=== PATIENT | female | born 1975 | race Caucasian/White ===

== ENCOUNTER 2021-02-22 09:51 | Inpatient (IN) ==
[~2021-02-22 09:51] MED LIST: Buffered Lidocaine 1% SYRIN 1 ml INTRADERM ONE; Lactated Ringers 1000 ml BAG 1,000 ML IV SCH
[2021-02-22] MEDS ORDERED: Heparin 5000 UNITS/ML 1 mL VIAL ONE (10:20)
[2021-02-22] MEDS ORDERED: ceFAZolin 2 GM in NS PREMIX 2 GM/100 ML BAG IVPB ONE (10:20)
[2021-02-22] MEDS ORDERED: ceFAZolin 1 GM ADVAN 1 GM ADDV.VIAL IVPB ONE (10:20)
[2021-02-22] MEDS ORDERED: Bupivacaine 0.25% EPI 200,000 30 ML SDV ONE (11:10)
[2021-02-22] MEDS ORDERED: Methylene Blue 0.5 % 50 MG/10 ML AMP IV ONE (11:10)
[2021-02-22] MEDS ORDERED: fentaNYL 100 mcg/2 ml 50 MCG/ML VIAL ONE (11:31)
[2021-02-22] MEDS ORDERED: Ketamine HCL 50 mg/ml 10 ml VIAL (500 MG) ONE (11:31)
[2021-02-22] MEDS ORDERED: Midazolam 2 mg/2 ml VIAL 1 mg/ml 2 ml VIAL (2 mg) ONE (11:31)
[2021-02-22] MEDS ORDERED: Rocuronium 50 mg VIAL 10 mg/ml 5 ml VIAL (50 mg) ONE ×3 (11:31→12:09)
[2021-02-22] MEDS ORDERED: Ondansetron 4 mg VIAL 2 MG/ML 2 ml VIAL IV PRN ×2 (12:53→14:40)
[2021-02-22] MEDS ORDERED: Naloxone 0.4 mg VIAL 0.4 mg/ml 1 ml VIAL IV PRN (12:53)
[2021-02-22] MEDS ORDERED: HYDROmorphone 1 MG/1 ML SYRINGE IV PRN (12:53)
[2021-02-22] MEDS ORDERED: Dexamethasone IV 4 MG/ML VIAL 1 ml VIAL ONE (13:35)
[2021-02-22] MEDS ORDERED: Ondansetron 4 mg VIAL 2 MG/ML 2 ml VIAL ONE ×2 (13:35→14:45)
[2021-02-22] MEDS ORDERED: HYDROmorphone 1 MG/1 ML SYRINGE IV SLOW PU PRN (14:40)
[2021-02-22] MEDS ORDERED: diPHENhydraMINE IV 50 MG/ML 1 ml VIAL (BENADRYL) SLOW PUSH PRN (14:40)
[2021-02-22] MEDS ORDERED: HYDROmorphone 0.5 MG/0.5 ML SYRINGE IV SLOW PU PRN (14:40)
[2021-02-22] MEDS ORDERED: HYDROmorphone 1 MG/1 ML SYRINGE ONE (14:54)
[2021-02-22] MEDS: Lactated Ringers 1000 ml BAG 1,000 ML IV SCH ×2 (15:55→23:19)
[2021-02-22] MEDS ORDERED: DiMENhydriNATE IV 50 mg/ml 1 ml VIAL IV PUSH PRN (18:11)
[2021-02-22] MEDS: Heparin 5000 UNITS/ML 1 mL VIAL SUBCUT SCH (21:55)
[2021-02-22] MEDS: Famotidine IV 10 MG/ML 2 ml VIAL (20 mg) IV SLOW PU SCH (21:56)
[2021-02-23] MEDS: Heparin 5000 UNITS/ML 1 mL VIAL SUBCUT SCH ×2 (05:47→14:14)
[2021-02-23] MEDS: Lactated Ringers 1000 ml BAG 1,000 ML IV SCH (05:54)
[2021-02-23] MEDS: Famotidine IV 10 MG/ML 2 ml VIAL (20 mg) IV SLOW PU SCH (09:23)
[2021-02-23] MEDS ORDERED: D5W 1/2 NS KCl 20 meq 1000 ml 1,000 ML IV SCH (15:00)
[2021-02-23 15:22] VITALS: BP 143/90
== END 2021-02-23 17:30 | disposition home or self-care (01) | DRG 621 ==
LOC: AA 09:51 → SSU 15:47
PROVIDERS: ADMIT Surgery; ATTEND Surgery

== ENCOUNTER 2022-10-12 07:30 | Inpatient (IN) ==
[2022-10-12] MEDS ORDERED: Ondansetron 4 mg VIAL 2 MG/ML 2 ml VIAL ONE ×3 (08:48→13:23)
[2022-10-12] MEDS ORDERED: Scopolamine 1 mg/72hr PATCH ONE (08:48)
[2022-10-12] MEDS ORDERED: Dexamethasone IV 4 MG/ML VIAL 1 ml VIAL ONE (08:48)
[2022-10-12] MEDS ORDERED: Heparin 5000 UNITS/ML 1 mL VIAL ONE (08:48)
[2022-10-12] MEDS ORDERED: ceFAZolin 2 GM in NS PREMIX 2 GM/100 ML BAG IVPB ONE (08:49)
[2022-10-12 09:29] LABS: Rapid COVID-19 Molecular Undetected (Undetected)
[2022-10-12] MEDS ORDERED: Midazolam 2 mg/2 ml VIAL 1 mg/ml 2 ml VIAL (2 mg) ONE (09:30)
[2022-10-12] MEDS ORDERED: fentaNYL 100 mcg/2 ml 50 MCG/ML VIAL ONE ×3 (09:30→11:41)
[2022-10-12] MEDS ORDERED: Propofol 10 MG/ML 20 ML BTL ONE ×5 (09:32→14:23)
[2022-10-12] MEDS ORDERED: Lidocaine 2% PF 5 ML VIAL ONE (09:32)
[2022-10-12] MEDS ORDERED: Bupivacaine 0.25% SDV 30 ML ONE (10:21)
[2022-10-12] MEDS ORDERED: ISOSULFAN BLUE 1% 5 ML VIAL 10 MG/ML SUBCUT ONE (10:21)
[2022-10-12] MEDS ORDERED: fentaNYL 100 mcg/2 ml 50 MCG/ML VIAL IV PRN (10:31)
[2022-10-12] MEDS ORDERED: Ondansetron 4 mg VIAL 2 MG/ML 2 ml VIAL IV PRN ×2 (10:31→14:25)
[2022-10-12] MEDS ORDERED: HYDROmorphone 1 MG/1 ML SYRINGE IV PRN (10:31)
[2022-10-12] MEDS ORDERED: Naloxone 0.4 mg VIAL 0.4 mg/ml 1 ml VIAL IV PRN (10:31)
[2022-10-12] MEDS ORDERED: Rocuronium 50 mg VIAL 10 mg/ml 5 ml VIAL (50 mg) ONE (10:46)
[2022-10-12] MEDS ORDERED: Glycopyrrolate IV 0.2 MG/ML 1 ML VIAL ONE (10:54)
[2022-10-12] MEDS ORDERED: Methylene Blue 0.5 % 50 MG/10 ML AMP IV ONE (11:11)
[2022-10-12] MEDS ORDERED: Acetaminophen IV 1 GM/100ML 1,000 MG/100 ML BAG IV ONE (11:15)
[2022-10-12] MEDS ORDERED: HYDROmorphone 0.5 MG/0.5 ML SYRINGE ONE ×2 (12:24→14:13)
[2022-10-12] MEDS ORDERED: Magnesium Hydroxide LIQ 30 ML UDC PO PRN (14:25)
[2022-10-12] MEDS ORDERED: Al Hydrox/Mg Hydrox/Simet LIQ 30 ML UDC PO PRN (14:25)
[2022-10-12] MEDS ORDERED: HYDROcodone/ACETAMIN 5/325 mg TAB PO PRN (14:47)
[2022-10-12] MEDS ORDERED: HYDROmorphone 0.5 MG/0.5 ML SYRINGE IV SLOW PU PRN (14:47)
[2022-10-12] MEDS ORDERED: ceFAZolin 1 GM X ONE DOSE (AddVan) IVPB (15:30)
[2022-10-12] MEDS: NS 0.9% 1000 ml BAG 1,000 ML IV SCH (16:00)
[2022-10-12] MEDS: Heparin 5000 UNITS/ML 1 mL VIAL SUBCUT SCH ×2 (18:08→23:44)
[2022-10-12] MEDS ORDERED: ceFAZolin 1 GM ADVAN 1 GM in NS 0.9% 50 ML 50 ML IVPB ONE (23:15)
[2022-10-13] MEDS: Heparin 5000 UNITS/ML 1 mL VIAL SUBCUT SCH ×2 (06:32→16:01)
[2022-10-13] MEDS: NS 0.9% 1000 ml BAG 1,000 ML IV SCH ×2 (06:34→06:36)
[2022-10-13] MEDS ORDERED: Senna TAB 8.6 mg TAB PO SCH (09:00)
[2022-10-13 14:15] VITALS: BP 113/70
== END 2022-10-13 17:00 | disposition home or self-care (01) | DRG 572 ==
LOC: AA 08:20 → SSU 17:02
PROVIDERS: ADMIT Plastic Surgery; ATTEND Plastic Surgery